=== PATIENT | male | born 1975 ===

== ENCOUNTER 2017-03-06 11:03 | Outpatient (CLI) | payer OTHER ==
[~2017-03-06] VITALS: Ht 170.2 cm; Wt 81.6 kg
[2017-03-06] MEDS ORDERED: FLONASE16 GM NASAL (11:37)
[2017-03-06] MEDS ORDERED: CLARITIN10 MG PO (11:37)
== END 2017-03-06 11:15 | disposition home or self-care (01) ==
LOC: OFIC 805 11:03
DX: G50.1 Atypical facial pain (principal); R51 Headache; J34.2 Deviated nasal septum; J30.89 Other allergic rhinitis